=== PATIENT | female | born 1955 | race Caucasian/White ===

== ENCOUNTER → 2017-11-03 | Outpatient (CLI) | payer MEDICARE ==
--- NOTE | 2017-11-03 12:39 | RADIOLOGY REPORT (SQ) ---
EXAM DESCRIPTION: MRI LUMBAR SPINE WITHOUT COMPLETED DATE/TIME: 11/03/2017 12:17 pm REASON FOR STUDY: LUMBAGO WITH SCIATICA, RIGHT SIDE (M54.41) M54.41 LUMBAGO WITH SCIATICA, RIGHT SI DE COMPARISON: 08/02/2013 TECHNIQUE: Sagittal and Axial imaging includes T1, T2, STIR and gradient echo sequences. Coronal T2/ HASTE imaging. LIMITATIONS: Motion. FINDINGS: VISUALIZED UPPER ABDOMEN: Limited evaluation. No acute or suspicious findings suggested. SEGMENTATION: No transitional anatomy. The lowest well-developed disc space is labeled L5-S1. ALIGNMENT: Moderate convex left scoliosis. VERTEBRAE: Intact. BONE MARROW: Reactive edema L2-3 endplates. DISC SIGNAL: Desiccation multiple levels. POSTERIOR ELEMENTS: Generally intact. No pars defect evident. HARDWARE: None in the spine. CORD AND CONUS: Normal in size and signal intensity. Conus at the appropriate level. SOFT TISSUES: No aortic aneurysm seen. No bulky retroperitoneal adenopathy or mass. No paraspinal mas s or fluid. L1-L2: Chronic endplate change. Mild spinal stenosis due to disc osteophyte complex. Moderate neura l foraminal narrowing bilaterally. L2-L3: Moderate spinal stenosis due to disc osteophyte complex and facet arthropathy. Moderate right and severe left neural foraminal narrowing. L3-L4: Moderate spinal stenosis due to disc osteophyte complex and facet arthropathy. Moderate neura l foraminal narrowing bilaterally. L4-L5: Severe spinal stenosis. Moderate neural foraminal narrowing bilaterally. L5-S1: Mild spinal stenosis. Moderate neural foraminal narrowing bilaterally. LOWER THORACIC: Incompletely imaged. No stenosis seen. SACRUM: Visualized upper sacrum intact. OTHER: No other significant findings. IMPRESSION: Spondylosis, facet arthropathy and malalignment. Spinal stenosis most severe at L4-5. No significant change. TECHNICAL DOCUMENTATION: JOB ID: [id number] [employer]- All Rights Reserved Reading location - IP/workstation name: [facility]
== END ==
LOC: RAD 11:32
PROVIDERS: ATTEND Nurse Practitioner
DX: M54.41 Lumbago with sciatica, right side (principal); M48.061 Spinal stenosis, lumbar region without neurogenic claudication
CPT/HCPCS: 72148